=== PATIENT | male | born 1965 | race Caucasian/White ===

== ENCOUNTER 2016-08-23 13:28 | Emergency (ER) | payer SELFPAY ==
--- NOTE | 2016-08-23 14:33 | ED.PDOC ---
History of Present Illness - General Chief Complaint: Headache Stated Complaint: migraine Time Seen by Provider: 08/23/16 14:26 Source: patient, family - wi Exam Limitations: no limitations - History of Present Illness Initial Comments: He stated that 2 hours after waking up this am he had onset of sharp headache right temporal area denies blurry vision weakness,felt nauseated no vomiting.Had recent [place] in [place] Timing/Duration: 4-6 hours Severity: moderate Improving Factors: nothing Worsening Factors: nothing Associated Symptoms: denies symptoms Allergies/Adverse Reactions: Allergies NO KNOWN ALLERGY Allergy (Verified 08/23/16 13:49) Home Medications: Ambulatory Orders Amlodipine Besylate 10 mg PO QAM #30 tab 08/23/16 Lisinopril 20 mg PO DAILY 08/23/16 Review of Systems - Review of Systems Constitutional: States: no symptoms reported EENTM: States: no symptoms reported Respiratory: States: no symptoms reported Cardiology: States: no symptoms reported Gastrointestinal/Abdominal: States: no symptoms reported Genitourinary: States: no symptoms reported Musculoskeletal: States: no symptoms reported Skin: States: no symptoms reported Neurological: States: see HPI, headache Endocrine: States: no symptoms reported Hematologic/Lymphatic: States: no symptoms reported Past Medical History (General) - Patient Medical History Hx Stroke: No Hx Congestive Heart Failure: No Hx Hypertension: Yes Hx Diabetes: No Hx MRSA: No - Vaccination History Hx Influenza Vaccination: No Hx Pneumococcal Vaccination: No - Social History Hx Tobacco Use: Yes Family Medical History - Family History Father Family History: Unknown Living Status: Still Living Physical Exam - Physical Exam General Appearance: Alert, No apparent distress Eye Exam: bilateral normal Ears, Nose, Throat: hearing grossly normal, normal ENT inspection, normal pharynx Neck: non-tender, full range of motion, supple Respiratory: chest non-tender, lungs clear, normal breath sounds, no respiratory distress Cardiovascular/Chest: normal peripheral pulses, regular rate, rhythm, no edema, no gallop, no JVD Peripheral Pulses: radial,right: 2+ Gastrointestinal/Abdominal: normal bowel sounds, non tender, soft, no organomegaly Back Exam: normal inspection, no CVA tenderness, no vertebral tenderness Extremity: normal range of motion, non-tender, normal inspection, no pedal edema 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, no motor/sensory deficits, normal mood/ affect, oriented x 3 Skin Exam: normal color, warm/dry, other - surgical incision right groin clear , intact Lymphatic: no adenopathy Progress - Results/Orders Results/Orders: Laboratory Results WBC 18.5 K/mm3 (4.8-10.8) H 08/23/16 14:48 RBC 5.33 M/mm3 (4.70-6.10) 08/23/16 14:48 Hgb 16.0 gm/dL (14.0-18.0) 08/23/16 14:48 Hct 48.3 % (42.0-52.0) 08/23/16 14:48 MCV 90.5 fl (80.0-94.0) 08/23/16 14:48 MCH 30.0 pg (27.0-31.0) 08/23/16 14:48 MCHC 33.2 g/dL (33.0-37.0) 08/23/16 14:48 RDW 13.4 % (11.5-14.5) 08/23/16 14:48 Plt Count 308 K/mm3 (130-400) 08/23/16 14:48 MPV 7.3 fl (7.40-10.4) L 08/23/16 14:48 Absolute Neuts (auto) 14.10 K/uL (1.8-6.8) H 08/23/16 14:48 Absolute Lymphs (auto) 2.80 K/uL (1.0-3.4) 08/23/16 14:48 Absolute Monos (auto) 1.30 K/uL (0.2-0.8) H 08/23/16 14:48 Absolute Eos (auto) 0.20 K/uL (0.0-0.4) 08/23/16 14:48 Absolute Basos (auto) 0.10 K/uL (0.0-0.1) 08/23/16 14:48 Neutrophils % 76.2 % (42.0-78.0) 08/23/16 14:48 Lymphocytes % 15.2 % (20.0-50.0) L 08/23/16 14:48 Monocytes % 6.8 % (2.0-9.0) 08/23/16 14:48 Eosinophils % 1.3 % (1.0-5.0) 08/23/16 14:48 Basophils % 0.5 % (0.0-2.0) 08/23/16 14:48 Sodium 137 mmol/L (135-145) 08/23/16 14:48 Potassium 3.2 mmol/L (3.6-5.0) L 08/23/16 14:48 Chloride 91 mmol/L (101-111) L 08/23/16 14:48 Carbon Dioxide 33 mmol/L (21-31) H 08/23/16 14:48 Anion Gap 16.2 (12-18) 08/23/16 14:48 BUN 16 mg/dL (7-18) 08/23/16 14:48 Creatinine 1.31 mg/dL (0.6-1.3) H 08/23/16 14:48 BUN/Creatinine Ratio 12.2 (10-20) 08/23/16 14:48 Random Glucose 95 mg/dL (70-105) 08/23/16 14:48 Serum Osmolality 274.8 mOsm/L (275-295) L 08/23/16 14:48 Lactic Acid 1.0 mmol/L (0.5-2.2) 08/23/16 15:39 Calcium 10.1 mg/dL (8.4-10.2) 08/23/16 14:48 Total Bilirubin 0.7 mg/dL (0.2-1.0) 08/23/16 14:48 AST 41 IU/L (10-42) 08/23/16 14:48 ALT 23 IU/L (10-60) 08/23/16 14:48 Alkaline Phosphatase 103 IU/L (42-121) 08/23/16 14:48 Serum Total Protein 9.4 gm/dL (6.4-8.2) H 08/23/16 14:48 Albumin 4.4 g/dl (3.2-5.5) 08/23/16 14:48 Globulin 5.0 gm/dL (2.3-3.5) H 08/23/16 14:48 Albumin/Globulin Ratio 0.9 (1.1-1.9) L 08/23/16 14:48 Urine Color Yellow (Yellow) 08/23/16 14:47 Urine Appearance Clear (Clear) 08/23/16 14:47 Urine pH 7.5 (4.5-7.8) 08/23/16 14:47 Ur Specific [place] 1.020 (1.005-1.030) 08/23/16 14:47 Urine Protein >=300 mg/dL H 08/23/16 14:47 Urine Glucose (UA) Negative mg/dL (Negative) 08/23/16 14:47 Urine Ketones Negative mg/dL (NEGATIVE) 08/23/16 14:47 Urine Blood Moderate (Negative) H 08/23/16 14:47 Urine Nitrite Negative 08/23/16 14:47 Urine Bilirubin Negative (NEGATIVE) 08/23/16 14:47 Urine Urobilinogen 0.2 mg/dL (0.2-1.0) 08/23/16 14:47 Ur Leukocyte Esterase Negative (Negative) 08/23/16 14:47 Urine RBC 20-30 /hpf H 08/23/16 14:47 Urine WBC 0 /hpf 08/23/16 14:47 Ur Epithelial Cells 0 /hpf 08/23/16 14:47 Urine Bacteria 0 08/23/16 14:47 Urine Opiates Screen Positive ng/mL (2000) H 08/23/16 14:48 Urine Barbiturates Negative ng/mL (200) 08/23/16 14:48 Ur Phencyclidine Scrn Negative ng/mL (25) 08/23/16 14:48 U Amphetamin/Meth Scrn Negative ng/mL (1000) 08/23/16 14:48 U Benzodiazepines Scrn Positive ng/mL (200) H 08/23/16 14:48 U Cocaine Metab Screen Negative ng/mL (300) 08/23/16 14:48 U Cannabinoids Screen Positive ng/mL (50) H 08/23/16 14:48 - EKG/XRAY/CT XRAY: chest - no acute abnormality noted CT: head with contrast-no hemorrhage,no dissection or vascular malformation Departure - Departure Clinical Impression: Headache upon awakening, Hypertension, essential, Renal insufficiency, Hematuria, microscopic Leucocytosis Qualifiers: Leukocytosis type: unspecified Qualifier Code: (D72.829) Elevated white blood cell count, unspecified Time of Disposition: 18:24 Disposition: Discharge to Home or Self Care Condition: Good Departure Forms: ED Discharge - Pt. Copy, Patient Portal Self Enrollment Instructions: DI for Hematuria, DI for Headache, High Blood Pressure, Reasons to Quit Smoking Diet: low salt diet Referrals: Goyo Michaud [Primary Care Provider] - 1-2 Weeks Prescriptions: Amlodipine Besylate 10 mg PO QAM #30 tab Home Medications: Ambulatory Orders Amlodipine Besylate 10 mg PO QAM #30 tab 08/23/16 Lisinopril 20 mg PO DAILY 08/23/16 Additional Instructions: RETURN TO EMERGENCY ROOM NEEDED;INCREASE LISINOPRIL 20mg. po am/pm Take blood pressure in am then record and show to primary md on follow up visit; Start amlodipine after a week if blood pressure not going down-bp 130/80.
[2016-08-23] MEDS ORDERED: diphenhydrAMINE HCL 50 MG/ML VIAL IM ONE (14:37)
[2016-08-23] MEDS ORDERED: MORPHINE SULFATE INJ 10 MG/ML VIAL IM ONE (14:38)
[2016-08-23] MEDS ORDERED: ONDANSETRON ODT 8 MG TAB SL ONE (14:39)
[2016-08-23] MEDS ORDERED: SODIUM CHLORIDE 0.9% 1000ML 1,000 ML IVS ONE (15:14)
[2016-08-23] MEDS ORDERED: SODIUM CHLORIDE 0.9% 10 ML VIAL ONE (15:21)
[2016-08-23] MEDS ORDERED: cloNIDine HCL 0.1 MG TAB PO ONE (16:49)
[2016-08-23 17:08] VITALS: TEMP 97.6
[2016-08-23 18:02] VITALS: BP 167/113; O2SAT 93
--- NOTE | 2016-09-15 23:51 | CT ---
EXAM: CTA Head CLINICAL INDICATION: 50-year-old male with headache. COMPARISON: None. TECHNIQUE: 1. Noncontrast CT brain was performed.2. CT of the head was performed following dynamic bolus of intravenous contrast. 3D reformatted reconstructions were performed on an independent workstation. CONTRAST: Name: OptirayConcentration: 320Route of Administration: IV FINDINGS: CTA brain: Examination findings are limited by venous contamination. Patent flow opacification through anterior circulation (bilateral petrous/cavernous/supraclinoid internal carotid arteries, anterior and middle cerebral arteries), posterior circulation (vertebral-basilar, posterior-inferior cerebellar, anterior-inferior cerebellar, superior cerebellar, and posterior cerebral arteries), and distal intracranial vasculature. Patent flow opacification through an incomplete [id number] with a patent anterior communicating artery and absent bilateral posterior communicating arteries. Normal superficial and deep intracranial venous drainage. No evidence of occlusive thrombus, dissection, or vascular malformation. Tiny, approximately 1 mm outpouching is identified at the level of the LEFT infraclinoid no cerebral artery, (axial series 304, image 60), findings of which may reflect small focus of calcification versus tiny aneurysm. CT brain noncontrast: The ventricles, sulci, and cisterns are symmetric and unremarkable. The baca-white matter differentiation is normal. There is no mass effect, midline shift, intra- or extra-axial fluid collection/acute hemorrhage, or abnormal contrast enhancement. The paranasal sinuses reveal polyp or retention cyst within the RIGHT greater than LEFT maxillary sinus. Mastoid air cells and remaining paranasal sinuses are clear. IMPRESSION: 1. No acute intracranial abnormalities or specific findings noted to suggest etiology of the patient's headaches.2. Patent flow-related enhancement of the intracranial circulation without findings to suggest etiology of the patient's headaches.3. Equivocal findings for tiny focus of calcification versus 1 mm tiny aneurysm. Electronically signed by: Tamara Torres MD 08/23/2016 5:07 PM NEWS TECHNICAL DIRECTOR
--- NOTE | 2016-09-16 05:54 | RAD ---
EXAM: Chest,1 View CLINICAL INDICATION: 50-year-old male with nausea vomiting and mild shortness of breath. TECHNIQUE: Single view, AP portable chest was obtained. COMPARISON: None. FINDINGS: Unremarkable cardiac and mediastinal silhouette. Heart size is normal. Lungs are clear without focal opacity, pneumothorax or pleural effusions. The visualized bones are within normal limits. IMPRESSION: No acute cardiopulmonary abnormalities. Electronically signed by: Tamara Torres MD 08/23/2016 5:18 PM SUPER[employer]OR [employer]
== END 2016-08-23 18:49 | disposition home or self-care (01) ==
LOC: ER 13:28
DX: R51 Headache (principal); I10 Essential (primary) hypertension; N28.9 Disorder of kidney and ureter, unspecified; R31.29 Other microscopic hematuria; D72.829 Elevated white blood cell count, unspecified
CPT/HCPCS: 36415; 70496; 71010; 80053; 81001; 83605; 85025; G0479; J1200; J2270; J7030